=== PATIENT | female | born 1960 | race Caucasian/White ===

== ENCOUNTER 2017-03-03 12:11 | Inpatient (IN) | payer BC ==
[2017-03-03] MEDS ORDERED: Fentanyl 20 MCG/ML 250 ML ONE (12:31)
[2017-03-03 12:46] LABS: Mechanical Tidal Volume 400 ml; Mode SIMV/PSV; Modified Allen's Test POSITIVE; Oxyhemoglobin 93.3 % (94.0-97.0); Pressure Support 10 cmH2O; Sodium 144 mmol/L (135-148); Vent YES
[2017-03-03 13:14] LABS: Bilirubin Negative (Negative); Blood, Urine Large (Negative); Glucose, Urine (Dipstick) Negative (Negative); Ketone, Urine Negative (Negative); Nitrite Negative (Negative); Protein, Urine (Dipstick) 30 mg/dL (Neg-Trace); Urobilinogen 0.2 mg/dL (0.2-1.0)
[2017-03-03 13:18] LABS: #Lymphocytes 0.8 thou/uL (1.20-3.40); #Monocytes 0.3 thou/uL (0.11-0.59); #Neutrophils 5.5 thou/uL (1.40-6.50); %Eosinophils 0.5 % (0.0-10.0); %Lymphocytes 11.7 % (21.0-51.0); %Monocytes 4.4 % (0.0-10.0); ALT (SGPT) 56 U/L (8-55); AST (SGOT) 33 U/L (5-34); Alkaline Phosphatase 86 U/L (40-150); Anion Gap 15 mmol/L (10-20); BUN (Urea Nitrogen) 13 mg/dL (9.8-20.1); Bilirubin, Total 0.8 mg/dL (0.2-1.2); Calc. Creatinine Clearance 0 mL/min (70-130); Calcium 7.7 mg/dL (7.8-10.44); Carbon Dioxide 21 mmol/L (22-29); Chloride 112 mmol/L (98-107); Estimated GFR-MDRD 66; Globulin 2.4 g/dL (2.4-3.5); Hematocrit 28.8 % (36.0-47.0); Mean Platelet Volume 7.5 fL (7.4-10.4); Red Blood Cell (RBC) Count 3.07 mill/uL (4.20-5.40)
[2017-03-03 13:26] LABS: Bacteria/HPF None Seen HPF (None Seen); Hyaline Casts/LPF 7-10 HYALINE CAST LPF (0-3 Hyaline); RBC/HPF GREATER THAN 50-TNTC HPF (0-3); Squamous Epithelial 0-3 HPF (0-3); WBC/HPF 21-50 HPF (0-3)
[2017-03-03 13:30] LABS: Troponin I 0.229 ng/mL (< 0.028)
[2017-03-03 13:40] LABS: Anisocytosis SLIGHT = 6-15 cells (100X) (0-5/hpf); Band 18 % (5-11); Metamyelocyte 5 % (0-0); Myelocyte 2 % (0-0); Neutrophil 60 % (42-75); Nucleated RBC 6 % (0); Polychromasia SLIGHT = 2-3 cells (100X) (0-2/hpf); Reactive Lymphocytes 2 % (0-10); Tear Drops SLIGHT = 2-5 cells (100X) (0-1/hpf)
[2017-03-03] MEDS ORDERED: Norepinephrine 8 MG/0.9% NS 250 ML ONE (13:46)
[2017-03-03 13:47] LABS: Yeast-All Forms 1+ HPF (None Seen)
[2017-03-03] MEDS ORDERED: Furosemide 40 MG/4 ML VIAL ONE (14:25)
[2017-03-03] MEDS ORDERED: cefTRIAXone\\ROCEPHIN 1 GM VIAL ONE (14:25)
[2017-03-03] MEDS ORDERED: Sodium Chloride 0.9% 100 ML ONE (14:25)
--- NOTE | 2017-03-03 14:27 | PDOC.EVN ---
Event Note - Event Note Event Note: H&P dictated [id number] A/P 1) respiratory failure 2) renal cell CA with metastatic disease 3) CHF decompensation 4) Shock - aggressive medical management - Critical care physician in room now talking to family - prognosis is very poor, hospice care recommended, will await pulmonary recommendations - further plan of care per pulmonary team case and plan d/w patient's family at length, they understand and agree with this plan
--- NOTE | 2017-03-03 14:42 | RAD ---
PORTABLE AP CHEST X-RAY 03/03/2017 HISTORY: Intubation. The patient became short of breath at home and unable to tolerate CPAP. The patient wa s intubated en route to hospital. COMPARISON: None available. FINDINGS: Right-sided PICC is noted in place with tip overlying the distal SVC. Endotracheal tube is noted in place with tip overlying the T4 vertebral body above the level of the garrick. There are bilateral pleural effusions greater on the left. There is increased perihilar interstitial and alveolar opaci ties which may be related to either bilateral asymmetric pulmonary edema or infectious process. Car diac silhouette is within normal limits. IMPRESSION: 1. Endotracheal tube noted in place which is above the level of the garrick. 2. Bilateral interstitial and alveolar opacities which may represent either asymmetric pulmonary arielle ma or infectious process. 3. Bilateral pleural effusions, greater on the left. POS: [facility]
[2017-03-03] MEDS ORDERED: Sedation Protocol FS ONE (14:46)
[2017-03-03 14:51] LABS: Lactic Acid - Sepsis 2.7 mmol/L (0.5-2.2)
[2017-03-03] MEDS ORDERED: Propofol 1,000 MG/100 ML VIAL IV PRN (16:27)
[2017-03-03] MEDS ORDERED: Lorazepam 2 MG/ML VIAL SLOW IVP PRN (16:27)
[2017-03-03] MEDS ORDERED: DISCONTINUE PREVIOUS NARCOTIC PAIN MEDICATIONS AND BENZODIAZEPINES FS SCH (16:27)
[2017-03-03] MEDS ORDERED: Morphine Sulfate 2 MG/ML SYRINGE SLOW IVP PRN (16:27)
[2017-03-03] MEDS ORDERED: Fentanyl 20 MCG/ML 250 ML IVPB SCH (16:27)
[2017-03-03] MEDS ORDERED: Fentanyl 100 MCG/2 ML VIAL SLOW IVP PRN (19:38)
[2017-03-03] MEDS: Lorazepam 2 MG/ML VIAL SLOW IVP PRN (20:17)
--- NOTE | 2017-03-03 20:38 | HP ---
DATE OF ADMISSION: 03/03/2017 CHIEF COMPLAINT: Respiratory failure. ADMITTING DIAGNOSIS: Respiratory failure. HISTORY OF PRESENT ILLNESS: This is a 56-year-old female being admitted to the Critical Care Unit f rom the emergency room because of respiratory failure. The patient has a past medical history of re nal cell carcinoma with metastatic disease all the way to her bones. The patient recently was at [facility] with pleural effusions, having had them tamped several times a thoracentesis. The patie nt was discharged from [facility], found herself at her home was in hospice and apparently had pi nk frothy sputum that she was coughing up. EMS was called. She was given some sedation, brought to the ER, intubated by EMS as they were unaware that she was hospice status. At this point in time, she is being evaluated in the emergency room by critical care physician, ER as well as Internal Medi cine. ALLERGIES: No known drug allergies. HOME MEDICATIONS: See MAR. REVIEW OF SYSTEMS: Not possible given the patient's condition. FAMILY HISTORY: Noncontributory. SOCIAL HISTORY: Nonsmoker, nondrinker. PAST MEDICAL HISTORY: Metastatic renal carcinoma to the bones, heart failure, pulmonary edema and e ffusions. PHYSICAL EXAMINATION: VITAL SIGNS: Blood pressure 68117, respiratory rate 24, temperature 98, heart rate 100. GENERAL: Lying in bed in no acute distress, intubated, sedated. HEENT: PERRLA. ET tube in place. CARDIOVASCULAR: Regular rate and rhythm. S1 and S2. No murmurs, rubs or gallops. PULMONARY: Coarse breath sounds bilaterally. Crackles bilaterally. ABDOMEN: Positive bowel sounds. No distention. NEUROLOGICAL: Exam not possible given intubation and sedation. EXTREMITIES: 2+ peripheral pulses, 1+ trace edema bilaterally, pitting lower extremity. LABORATORY DATA: WBC 6, hemoglobin 9.5, hematocrit 28, platelet count of 111. ABG shows pH of 7.32 , pCO2 of 47, pO2 of 78. Chemistry shows sodium of 145, potassium 3, chloride 112, carbon dioxide 2 1, glucose of 122, calcium 72. AST and ALT normal. Troponin 0.23, albumin 2.6. Urinalysis shows p ositive for proteinuria, probable UTI, given higher than 21-50 wbc's as well as yeast and hyaline ca sts. ASSESSMENT AND PLAN: 1. Respiratory failure. 2. Renal cell carcinoma with metastatic disease. 3. Congestive heart failure. 4. Hypokalemia. 5. Metabolic acidosis. PLAN: At this point in time, patient is being evaluated in the emergency room. Care and plan discu ssed with the patient. They understand that this is a critical case. Patient's prognosis is extrem neil poor. We will provide supportive care. Further management as per critical care physician, Dr. Martel who is in the room, evaluating the patient at this point in time. Recommendations will be hosp ice care and extubation as a probability of recovery from this for the patient is extremely low and she has an extremely poor prognosis. This was stated to the patient. Patient's family understands and agrees with this. Currently, in discussion with the car dumper, further plan as per Pulmonar y Critical Care.
--- NOTE | 2017-03-03 20:55 | CON ---
DATE OF CONSULTATION: 03/03/2017 HISTORY OF PRESENT ILLNESS: A 56-year-old female with metastatic renal cell carcinoma diagnosed [facility] where in June 2013. She has been receiving treatment in [place], in fact was hospitalized re cently with respiratory failure, bilateral pleural effusion, left-sided thoracentesis was done, and pleural fluid was obtained. She was told that there is no other option at this time since she has g ot extensive widespread metastasis. Apparently, she came to [facility] at hospice. This morning, they woke with the patient having respiratory distress, shortness of breath, low oxygen in spite of increasing O2 to 4 liters. They called 911 and EMS proceeded to intubate her. She is now in the ER, had a very lengthy extens adele discussion with the patient's , patient's sister about her code status, she is clearly a DNR. They want comfort measures. Unfortunately, they are not able to make a decision right now abo ut extubation in the ER. She therefore going to be admitted to the ICU on the vent, intubated. She is on fentanyl 150 mcg, we are trying to cut back to 100 to keep her comfortable. Anytime they decide to extubate her, this can be done. PAST MEDICAL HISTORY: Pertinent for renal cell carcinoma with extensive metastasis. Status post emoradiation, history of hypothyroidism. MEDICATIONS: Most of her medicine from home includes pain management medication including liquid mo rphine, methadone and apparently Lyrica. PAST SURGICAL HISTORY: Previous surgeries as outlined included thoracentesis recently and previous right nephrectomy. ALLERGIES: At this stage unknown. REVIEW OF SYSTEMS: Unobtainable, on the vent. She opens her eyes. PHYSICAL EXAMINATION: VITAL SIGNS: Blood pressure 85/50, sats are 100%, respirations 20. CHEST: Reveals decreased breath sounds, no wheezing. CARDIAC: Normal S1, S2. No gallops. ABDOMEN: No masses. IMAGING: X-ray shows bilateral pleural effusion left greater than right, extensive bilateral nonspe cific infiltrates. LABORATORY DATA: White count 6, H and H 9 and 28, platelet count is 111. PO2 of 78, PCO2 46, pH 7. 32, rate of 20, 60% FiO2. Potassium is 3. Electrolytes are normal. BNP was 3683. was lucila l. IMPRESSION: 1. Metastatic extensive renal cell carcinoma with recent thoracentesis on the left side. 2. Elevated BNP. 3. Respiratory failure. 4. Thrombocytopenia. PLAN: Family, and sister will decide about ongoing care. She was given a trial of diuretic s in the ER. I am concerned that blood pressure may drop, but she is clearly a DNR. They do not wa nt resuscitative efforts at this time. When they are agreeable, we will consider extubation and com fort care. We can call inpatient hospice or palliative care if they desire to do so. I am clearly not going to do a thoracentesis at this stage. Forty-five minutes critical care time.
[2017-03-03 21:39] VITALS: BP 95/50
[2017-03-03 22:44] VITALS: TEMP 97
[2017-03-04] MEDS: Fentanyl 100 MCG/2 ML VIAL SLOW IVP PRN ×4 (00:49→19:50)
--- NOTE | 2017-03-04 11:08 | PDOC.PN ---
- Subjective Encounter Start Date: 03/04/17 Encounter Start Time: 11:06 Patient seen and examined, per family she has been coughing and opening her eyes here and there and also following some commands, otherwise no new issues or complaints in the last 24 hours. - Objective Vital Signs & Weight: Vital Signs (12 hours) Temp Pulse Resp 03/04/17 08:00 97 F L 114 H 12 Most Recent Monitor Data Heart Rate from ECG 107 NIBP 106/56 NIBP BP-Mean 74 Respiration from ECG 13 I&O: 03/03/17 03/04/17 03/05/17 06:59 06:59 06:59 Intake Total 351 Output Total 3450 Balance -3099 Result Diagrams: 03/03/17 12:41 03/03/17 12:41 Phys Exam - Physical Examination Constitutional: NAD laying in bed HEENT: PERRLA, moist MMs Neck: no nodes, no JVD coarse breath sounds B/L Cardiovascular: RRR, no significant murmur Gastrointestinal: soft, non-tender Musculoskeletal: no edema, pulses present Skin: no rash, normal turgor Dx/Plan (1) Metastatic renal cell carcinoma Code(s): C64.9 - MALIGNANT NEOPLASM OF UNSP KIDNEY, EXCEPT RENAL PELVIS Status : Acute (2) Pulmonary edema Code(s): J81.1 - CHRONIC PULMONARY EDEMA Status: Acute (3) SOB (shortness of breath) Code(s): R06.02 - SHORTNESS OF BREATH Status: Acute (4) Mental status change Code(s): R41.82 - ALTERED MENTAL STATUS, UNSPECIFIED Status: Acute - Plan * Palliative care consult for now * comfort measures * Patient has very poor prognosis * Family wishes to discuss hospice/palliation options * continue comfort care for now with no changes * Case and plan d/w patient's family at length, they understand and agree with this plan
[2017-03-04] MEDS: Lorazepam 2 MG/ML VIAL SLOW IVP PRN (22:56)
[2017-03-05] MEDS: Lorazepam 2 MG/ML VIAL SLOW IVP PRN (10:15)
--- NOTE | 2017-03-05 12:42 | PDOC.EVN ---
Event Note - Event Note Event Note: Covering for Dr. Wang. Asked by Dr. Wang to sign OOH DNR paperwork, completed.
--- NOTE | 2017-03-05 14:56 | PDOC.PN ---
- Subjective Encounter Start Date: 03/05/17 Encounter Start Time: 14:54 Patient seen and examined. No new complaints. No overnight events - Objective MAR Reviewed: Yes Vital Signs & Weight: Vital Signs (12 hours) Temp Pulse Resp Pulse Ox 03/05/17 08:00 97 F L 114 H 12 85 L Most Recent Monitor Data Heart Rate from ECG 107 NIBP 106/56 NIBP BP-Mean 74 Respiration from ECG 13 I&O: 03/04/17 03/05/17 03/06/17 06:59 06:59 06:59 Intake Total 351 50 Output Total 3450 100 150 Balance -3099 -50 -150 Result Diagrams: 03/03/17 12:41 03/03/17 12:41 Phys Exam - Physical Examination HEENT: PERRLA Neck: no JVD Respiratory: no rales Cardiovascular: no significant murmur Gastrointestinal: non-tender Musculoskeletal: pulses present Neurological: moves all 4 limbs Dx/Plan - Plan * . Palliative care consult for now * comfort measures * Patient has very poor prognosis * arrangement to for inpt hospice done * Case and plan d/w patient's family at length, they understand and agree with this plan
--- NOTE | 2017-03-05 18:00 | DIS ---
DATE OF ADMISSION: 03/03/2017 DATE OF DISCHARGE: 03/05/2017 DISPOSITION: To hospice. DISCHARGE DIAGNOSES: 1. Respiratory failure. 2. Congestive heart failure exacerbation, etiology unknown. 3. Renal cell carcinoma with metastasis. The patient is agreeing with hospice. The patient is DNR . 4. Hypokalemia, resolved. 5. Metabolic acidosis, stable. CONSULTANTS: The patient's consultants on the case were Oncology and Pulmonary. DISCHARGE MEDICATIONS: As per hospice. BRIEF HOSPITAL COURSE: A 56-year-old female who came into the hospital because of respiratory failu re. Please refer to the admitting physician's H\T\P for further details. The patient was intubated in the ER because they did not know that the patient was a DNR. Later Dr. Martel spoke to the asia t's family, they opted for comfort care. This patient was extubated and transferred to the Oncology floor. Arrangements for inpatient hospice has been made. She is right now quite comfortable. She is medically stable to be transferred to hospice. Total time for this discharge and dictation took 35 minutes.
== END 2017-03-05 18:25 | disposition hospice, inpatient (51) | DRG 208 ==
LOC: ERS 12:11 → CCU 15:06 → ONC 21:17
PROVIDERS: ADMIT Internal Medicine; ATTEND Internal Medicine
PROC: 5A1935Z Respiratory Ventilation, Less than 24 Consecutive Hours (ICD-10-PCS; principal; 2017-03-03)
DX: J96.90 Respiratory failure, unspecified, unspecified whether with hypoxia or hypercapnia (principal); R57.0 Cardiogenic shock; C79.51 Secondary malignant neoplasm of bone; E87.2 Acidosis; C79.9 Secondary malignant neoplasm of unspecified site; I50.1 Left ventricular failure, unspecified; C64.9 Malignant neoplasm of unspecified kidney, except renal pelvis; N39.0 Urinary tract infection, site not specified; D69.6 Thrombocytopenia, unspecified; E87.6 Hypokalemia; Z66 Do not resuscitate; Z51.5 Encounter for palliative care; E03.9 Hypothyroidism, unspecified; R41.82 Altered mental status, unspecified
CPT/HCPCS: 36415; 71010; 80053; 81003; 81015; 82553; 82805; 83605; 83880; 84484; 85025; 87040; 87086; 94002; 96365; 96366; 96367; 96368; 96375; J0696; J1940; J2060; J2270; J3010; J7050